=== PATIENT | male | born 1980 | race Caucasian/White ===

== ENCOUNTER → 2016-10-29 | Outpatient (CLI) | payer OTHER ==
[2016-10-29 10:53] LABS: BASOPHIL % 0.6 % (0-2); PLATELET COUNT 146 x10^3mcL (130-400)
[2016-10-29 10:54] LABS: RED CELL DISTRIBUTION WIDTH 17.5 % (11.5-14.5)
[2016-10-29 11:18] LABS: ALBUMIN 4.1 g/dL (3.4-5.0); BILIRUBIN TOTAL 1.19 mg/dL (0.20-1.00); CALCIUM 9.1 mg/dL (8.5-10.1); CHOLESTEROL/HDL RATIO 3.9; CREATININE SERUM 2.5 mg/dL (0.7-1.3); POTASSIUM SERUM 3.2 mmol/L (3.5-5.1); TOTAL PROTEIN, SERUM 7.6 g/dL (6.4-8.2); URIC ACID 10.7 mg/dL (3.5-7.2)
== END | disposition home or self-care (01) ==
LOC: LB 10:25
DX: M79.671 Pain in right foot (principal)

== ENCOUNTER → 2017-03-16 | Outpatient (CLI) | payer OTHER ==
[2017-03-16 09:21] LABS: BASOPHIL % 0.2 % (0-2); PLATELET COUNT 159 x10^3mcL (130-400)
[2017-03-16 09:40] LABS: ALBUMIN 3.6 g/dL (3.4-5.0); BILIRUBIN TOTAL 0.7 mg/dL (0.20-1.00); CALCIUM 9.2 mg/dL (8.5-10.1); CARBON DIOXIDE 32.4 mmol/L (21-32); CREATININE SERUM 2.6 mg/dL (0.7-1.3); POTASSIUM SERUM 3.9 mmol/L (3.5-5.1); TOTAL PROTEIN, SERUM 7.9 g/dL (6.4-8.2)
[2017-03-16 10:31] LABS: RED CELL DISTRIBUTION WIDTH 17.2 % (11.5-14.5)
== END | disposition home or self-care (01) ==
LOC: US 08:32
PROC: BT43ZZZ Ultrasonography of Bilateral Kidneys (ICD-10-PCS; principal; 2017-03-16)
DX: N18.9 Chronic kidney disease, unspecified (principal); I50.42 Chronic combined systolic (congestive) and diastolic (congestive) heart failure; I10 Essential (primary) hypertension

== ENCOUNTER → 2017-11-11 | Outpatient (CLI) | payer OTHER ==
[2017-11-11 09:34] LABS: CALCIUM 8.3 mg/dL (8.5-10.1); CARBON DIOXIDE 28.7 mmol/L (21-32); CREATININE SERUM 3.1 mg/dL (0.7-1.3)
[2017-11-11 11:33] LABS: CREATININE SERUM 3.1 mg/dL (0.7-1.3)
== END | disposition home or self-care (01) ==
LOC: LB 08:52
DX: N28.9 Disorder of kidney and ureter, unspecified (principal)

== ENCOUNTER → 2018-07-06 | Outpatient (CLI) | payer OTHER ==
[2018-07-06 10:34] LABS: ALBUMIN 3.5 g/dL (3.4-5.0); ALKALINE PHOSPHATASE 115 U/L (46-116); ALT/SGPT 106 U/L (16-63); AST/SGOT 77 U/L (15-37); BILIRUBIN TOTAL 0.63 mg/dL (0.20-1.00); CALCIUM 8.4 mg/dL (8.5-10.1); CARBON DIOXIDE 31.8 mmol/L (21-32); CHLORIDE SERUM 104 mmol/L (98-107); CREATININE SERUM 3.4 mg/dL (0.7-1.3); GFR1 22 mL/min; GLUCOSE SERUM 81 mg/dL (74-106); POTASSIUM SERUM 4.8 mmol/L (3.5-5.1); SODIUM SERUM 141 mmol/L (136-145); TOTAL PROTEIN, SERUM 7.8 g/dL (6.4-8.2); URIC ACID 10.1 mg/dL (3.5-7.2)
[2018-07-06 10:36] LABS: BASOPHIL % 0.5 % (0-2); PLATELET COUNT 223 x10^3mcL (130-400)
[2018-07-06 10:42] LABS: RED CELL DISTRIBUTION WIDTH 18.1 % (11.5-14.5)
[2018-07-06 11:31] LABS: UA SPECIFIC GRAVITY 1.025 (1.005-1.035); microscopic required? YES; urine erythrocyte 3+ (NEGATIVE)
[2018-07-06 11:39] LABS: AMPHETAMINE QUAL UR NONE DETECTED (See below)
== END | disposition home or self-care (01) ==
LOC: LB 09:36
DX: N18.4 Chronic kidney disease, stage 4 (severe) (principal); N04.9 Nephrotic syndrome with unspecified morphologic changes; I10 Essential (primary) hypertension